=== PATIENT | female | born 1995 | race Caucasian/White ===

== ENCOUNTER 2018-06-20 23:45 | Emergency (ER) | payer OTHER ==
--- NOTE | 2018-06-21 00:22 | ED.PDOC ---
History of Present Illness - General Chief Complaint: Problem Stated Complaint: UTI pain Time Seen by Provider: 06/21/18 00:20 Additional Information: 22 YEAR OLD HERE FOR EVALUATION OF LEFT FLANK PAIN ONSET 2 DAYS SHE IS 23 WEEKS SHE HAS NO FEVER CHILLS BUT SOME ADMITS TO HAVING NAUSEA - History of Present Illness Timing/Duration: yesterday Quality: moderate Onset Location: left flank Radiation: none Activites at Onset: none Improving Factors: nothing Worsening Factors: nothing Associated Symptoms: denies symptoms Allergies/Adverse Reactions: Allergies NO KNOWN ALLERGY Allergy (Verified 06/21/18 00:04) Home Medications: Ambulatory Orders Cefuroxime Axetil [Ceftin] 500 mg PO Q12H #20 tablet 06/21/18 Review of Systems - Review of Systems Constitutional: States: no symptoms reported EENTM: States: no symptoms reported Respiratory: States: no symptoms reported Cardiology: States: no symptoms reported Gastrointestinal/Abdominal: States: nausea Genitourinary: States: frequency Musculoskeletal: States: no symptoms reported Skin: States: no symptoms reported Neurological: States: no symptoms reported Endocrine: States: no symptoms reported Past Medical History (General) - Patient Medical History Hx Seizures: No Hx Stroke: No Hx Dementia: No Hx Asthma: No Hx of COPD: No Hx Cardiac Disorders: No Hx Congestive Heart Failure: No Hx Pacemaker: No Hx Hypertension: No Hx Thyroid Disease: No Hx Diabetes: No Hx Gastroesophageal Reflux: No Hx Renal Disease: No Hx Cancer: No Hx of HIV: No Hx Hepatitis C: No Hx MRSA: No Surgical History: no surgical history - Vaccination History Hx Tetanus, Diphtheria Vaccination: No Hx Influenza Vaccination: Yes Hx Pneumococcal Vaccination: No Immunizations Up to Date: No - Social History Hx Tobacco Use: Yes Hx Alcohol Use: No Hx Substance Use: No Hx Substance Use Treatment: No Hx Depression: No Feels Threatened In Home Enviroment: No Feels Threatened In a Relationship: No Hx Physical Abuse: No Hx Emotional Abuse: No Hx Suspected Abuse: No - Female History Patient is a Female of Child Bearing Age (10 -59 yrs old): Yes Hx Last Menstrual Period: 01/10/18 Patient : Yes Expected Date of Delivery:: 10/18/18 - Triage Comment ED Triage Comment: Pt states that she began having burning with urination this morning. Pt states she saw her spd tech at 1800 and was diagnosed with UTI and prescribed antibiotics. Pt states that the pain has gotten worse and is radiating in her flanks bilaterally. 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, no motor/sensory deficits, alert, normal mood/affect, oriented x 3 Progress - Results/Orders Results/Orders: Laboratory Tests 06/21/18 06/21/18 06/21/18 00:24 00:24 01:05 WBC 13.4 H RBC 3.93 L Hgb 11.1 L Hct 32.9 L MCV 83.7 MCH 28.2 MCHC 33.9 RDW 13.5 Plt Count 255 MPV 7.9 Absolute Neuts (auto) 11.20 H Absolute Lymphs (auto) 1.00 Absolute Monos (auto) 1.10 H Absolute Eos (auto) 0.00 Absolute Basos (auto) 0.00 Neutrophils % 84.1 H Lymphocytes % 7.4 L Monocytes % 8.1 Eosinophils % 0.1 L Basophils % 0.3 Sodium 137 Potassium 3.5 L Chloride 104 Carbon Dioxide 25 Anion Gap 11.5 L BUN 11 Creatinine 0.49 L BUN/Creatinine Ratio 22.4 H Random Glucose 118 H Serum Osmolality 274.3 L Calcium 8.9 Total Bilirubin 0.3 AST 21 ALT 18 Alkaline Phosphatase 78 Serum Total Protein 6.3 L Albumin 2.9 L Globulin 3.4 Albumin/Globulin Ratio 0.9 L Urine Color Yellow Urine Appearance Sl cloudy Urine pH 6.0 Ur Specific [place] 1.020 Urine Protein 100 H Urine Glucose (UA) 100 H Urine Ketones Negative Urine Blood Large H Urine Nitrite Positive H Urine Bilirubin Negative Urine Urobilinogen 0.2 Ur Leukocyte Esterase Small H Urine RBC 30-40 H Urine WBC 40-50 H Ur Epithelial Cells 1-3 Urine Bacteria 2+ H SHE WAS GIVEN MEFOXIN 1 GM IV FOR PYELONEPHRITIS CONTINUE WITH ORAL CEFTIN 500 MG PO BID FOLLOW UP HERE OT WITH HER MD IF SYMPTOMS DO NOT IMPROVE Departure - Departure Clinical Impression: Urinary tract infection, Second trimester Time of Disposition: :32 Disposition: Discharge to Home or Self Care Condition: Good Departure Forms: ED Discharge - Pt. Copy, Patient Portal Self Enrollment Referrals: Luke Adkins MD [Primary Care Provider] - 1-2 Weeks Prescriptions: Cefuroxime Axetil [Ceftin] 500 mg PO Q12H #20 tablet Home Medications: Ambulatory Orders Cefuroxime Axetil [Ceftin] 500 mg PO Q12H #20 tablet 06/21/18
[2018-06-21] MEDS ORDERED: MORPHINE SULFATE INJ 10 MG/ML VIAL IV ONE (00:25)
[2018-06-21] MEDS ORDERED: PROMETHAZINE HCL INJ 25 MG/ML VIAL IM PRN (00:25)
[2018-06-21] MEDS ORDERED: cefOXitin SODIUM 1 GM in SODIUM CHL 0.9% 50ML MIN-BAG+ 50 ML IVPB ONE (00:56)
[2018-06-21] MEDS ORDERED: SODIUM CHL 0.9% 50ML MIN-BAG+ 50 ML IVPB ONE (00:59)
[2018-06-21 01:35] VITALS: TEMP 98.9; O2SAT 100
[2018-06-21 01:50] VITALS: BP 105/65
== END 2018-06-21 01:48 | disposition home or self-care (01) ==
LOC: ER 23:45
DX: O23.42 Unspecified infection of urinary tract in pregnancy, second trimester (principal); Z3A.23 23 weeks gestation of pregnancy; Z87.891 Personal history of nicotine dependence
CPT/HCPCS: 80053; 81001; 85025; 87086; J0694; J2270; J2550; J7050

== ENCOUNTER → 2018-08-17 | Outpatient (CLI) | payer OTHER | LOC: LAB.O 10:31 | PROVIDERS: ATTEND Emergency Medicine | DX: Z33.1 Pregnant state, incidental (principal) ==

== ENCOUNTER 2019-07-12 20:37 | Emergency (ER) | payer SELFPAY ==
[2019-07-12] MEDS ORDERED: LIDOCAINE 1% 10 ML VIAL INJ ONE (20:51)
[2019-07-12 20:56] VITALS: BP 128/99; TEMP 98.9; O2SAT 100
[2019-07-12] MEDS ORDERED: NEOMYCIN-BACITRACIN-POLYMYXIN 0.9 GM UD TOP ONE (21:22)
[2019-07-12] MEDS ORDERED: SULFA/TRIMETH 800/160 (DS) TAB 1 EA TAB PO ONE (21:35)
[2019-07-12] MEDS ORDERED: TETANUS,DIPHTHERIA,PERTUSSIS 1 EA SYG IM ONE (21:35)
--- NOTE | 2019-07-12 21:41 | ED.PDOC ---
History of Present Illness - General Chief Complaint: Upper Extremity Injury Stated Complaint: laceration Time Seen by Provider: 07/12/19 21:35 Source: patient Exam Limitations: no limitations - History of Present Illness Initial Comments: the patient's 23-year-old female presenting to the emergency room secondary to a 1.5 cm laceration to the dorsal aspect of the second digit of the right hand. She sustained this while washing dishes and cut it on a piece of glass. No evidence of any tendon damage. No evidence of any sensory loss distally. The wound actually looks fairly clean. No other injuries. The patient is not up-to-date on her tetanus. Timing/Duration: 1/2 hour Severity: moderate Improving Factors: nothing Worsening Factors: nothing Associated Symptoms: denies symptoms Allergies/Adverse Reactions: Allergies NO KNOWN ALLERGY Allergy (Verified 06/21/18 00:04) Home Medications: Ambulatory Orders Cefuroxime Axetil [Ceftin] 500 mg PO Q12H #20 tablet 06/21/18 Sulfa/Trimeth 800/160 (Ds) Tab [Bactrim DS Tab] 1 ea PO DAILY #5 tab 07/12/19 Review of Systems - Review of Systems Constitutional: States: no symptoms reported EENTM: States: no symptoms reported Respiratory: States: no symptoms reported Cardiology: States: no symptoms reported Gastrointestinal/Abdominal: States: no symptoms reported Genitourinary: States: no symptoms reported Musculoskeletal: States: no symptoms reported Skin: States: see HPI Neurological: States: no symptoms reported Endocrine: States: no symptoms reported All other Systems: No Change from Baseline Past Medical History (General) - Patient Medical History Hx Seizures: No Hx Stroke: No Hx Dementia: No Hx Asthma: No Hx of COPD: No Hx Cardiac Disorders: No Hx Congestive Heart Failure: No Hx Pacemaker: No Hx Hypertension: No Hx Thyroid Disease: No Hx Diabetes: No Hx Gastroesophageal Reflux: No Hx Renal Disease: No Hx Cancer: No Hx of HIV: No Hx Hepatitis C: No Hx MRSA: No Surgical History: no surgical history - Vaccination History Hx Tetanus, Diphtheria Vaccination: No Hx Influenza Vaccination: No Hx Pneumococcal Vaccination: No Immunizations Up to Date: No - Social History Hx Tobacco Use: Yes Hx Alcohol Use: Yes Hx Substance Use: No Hx Substance Use Treatment: No Hx Depression: No Hx Physical Abuse: No Hx Emotional Abuse: No Hx Suspected Abuse: No - Female History Patient is a Female of Child Bearing Age (10 -59 yrs old): Yes Hx Last Menstrual Period: 01/10/18 Patient : No Expected Date of Delivery:: 10/18/18 Family Medical History - Family History Mother Family History: No Known Physical Exam - Physical Exam General Appearance: Alert, Comfortable, No apparent distress Eye Exam: bilateral normal Ears, Nose, Throat: hearing grossly normal Neck: full range of motion Respiratory: no respiratory distress Cardiovascular/Chest: normal peripheral pulses, no edema Peripheral Pulses: radial,right: 2+, radial,left: 2+ Rectal Exam: deferred Extremity: normal range of motion, no pedal edema, normal capillary refill 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 After risks and benefits were explained, the wound was cleaned with hydrogen peroxide. Lidocaine without epinephrine 2 cc was used as a local anesthetic. 4 simple sutures of 4-0 Ethilon were used for reapproximation. Patient tolerated this well. She was given a tetanus shot and a dose of Bactri m. She'll be placed on Bactrim for the next 5 days prophylactically. Sutures need to come out in 7-10 days. Otherwise wash the wound daily with an antibacterial soap and water. Cover with triple antibiotic ointment and a Band- Aid. ER warnings were given for any evidence of infection. caio urbina [id number] Departure - Departure Clinical Impression: Finger laceration Qualifiers: Encounter type: initial encounter Finger: index finger Damage to nail status: without damage Foreign body presence: without foreign body Laterality: right Qualified Code(s): S61.210A - Laceration without foreign body of right index finger without damage to nail, initial encounter Disposition: Discharge to Home or Self Care Condition: Good Departure Forms: ED Discharge - Pt. Copy, Patient Portal Self Enrollment Instructions: DI for Hand Injury Diet: regular diet Activity: increase activity as tolerated Referrals: RICK LEIGH [Primary Care Provider] - 1-2 Weeks Prescriptions: Sulfa/Trimeth 800/160 (Ds) Tab [Bactrim DS Tab] 1 ea PO DAILY #5 tab Home Medications: Ambulatory Orders Cefuroxime Axetil [Ceftin] 500 mg PO Q12H #20 tablet 06/21/18 Sulfa/Trimeth 800/160 (Ds) Tab [Bactrim DS Tab] 1 ea PO DAILY #5 tab 07/12/19 Additional Instructions: the patient's a 23-year-old female presenting to emergency room secondary to a 1.5 cm laceration to the dorsal aspect of the second digit of the right hand. After risks and benefits were explained, the wound was cleaned with hydrogen peroxide. Lidocaine without epinephrine 2 cc was used as a local anesthetic. 4 simple sutures of 4-0 Ethilon were used for reapproximation. Patient tolerated this well. She was given a tetanus shot and a dose of Bactrim. She'll be placed on Bactrim for the next 5 days prophylactically. Sutures need to come out in 7-10 days. Otherwise wash the wound daily with an antibacterial soap and water. Cover with triple antibiotic ointment and a Band- Aid. ER warnings were given for any evidence of infection.
== END 2019-07-12 21:49 | disposition home or self-care (01) ==
LOC: ER 20:37
DX: S61.211A Laceration without foreign body of left index finger without damage to nail, initial encounter (principal); W25.XXXA Contact with sharp glass, initial encounter; Y93.G1 Activity, food preparation and clean up; Z87.891 Personal history of nicotine dependence; Y92.9 Unspecified place or not applicable